=== PATIENT | male | born 1960 | race Caucasian/White ===

== ENCOUNTER 2023-08-20 17:02 | Emergency (ER) | payer SELFPAY ==
[2023-08-20 17:49] VITALS: BP 96/62; PULSE 65; RESP 20; TEMP 98.1; BMI 27.3
== END 2023-08-20 20:52 | disposition home or self-care (01) ==
LOC: JER 17:02
DX: F10.929 Alcohol use, unspecified with intoxication, unspecified (principal); W10.8XXA Fall (on) (from) other stairs and steps, initial encounter
CPT/HCPCS: 70450-TC; 71045-TC-FY; 72125-TC; 72170-TC-FY; 99284-25